=== PATIENT | female | born 1980 | race American Indian/Alaskan Native ===

== ENCOUNTER 2021-11-09 21:20 | Emergency (ER) | payer OTHER, MEDICAID ==
[2021-11-09 21:41] VITALS: BP 151/97
[2021-11-10] MEDS ORDERED: HYDROcodone/ACETAMINOPHEN 5-325 MG TAB PO STA (02:19)
--- NOTE | 2021-11-10 02:45 | XRay Report ---
Cervical spine 3 views INDICATION: Neck pain IMPRESSION: No acute fracture or subluxation identified. 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 Suboptimal open-mouth odontoid Signer Name: Jacob Camarena MD Signed: 11/10/2021 2:41 AM Workstation Name: [email or web address]
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
== END 2021-11-10 07:48 | disposition home or self-care (01) ==
LOC: ED 21:20
DX: S16.1XXA Strain of muscle, fascia and tendon at neck level, initial encounter (principal); V89.2XXA Person injured in unspecified motor-vehicle accident, traffic, initial encounter; Y93.89 Activity, other specified; Y92.89 Other specified places as the place of occurrence of the external cause; Y99.8 Other external cause status
CPT/HCPCS: 72040; 99283